=== PATIENT | male | born 2000 | race Caucasian/White ===

== ENCOUNTER 2021-07-10 19:41 | Emergency (ER) | payer OTHER, MEDICAID ==
--- NOTE | 2021-07-10 20:28 | ED Upper Extremity ---
General Stated Complaint: CUT FINGER Source: patient Exam Limitations: no limitations (BAYRON MARTIN) History of Present Illness Date Seen by Provider: July 10, 2021 Time Seen by Provider: 20:31 Initial Comments Patient is a 20-year-old male who presents ED with a laceration to his right distal middle finger. This occurred around 530 this evening. Works at [employer] when making a sandwich. He states the knife slipped resulting in a laceration to the palmar side of his right middle finger. Normal active range of motion. Up-to-date on his tetanus within the past 5 years. Bleeding co ntrolled with direct pressure. No obvious deformity, distal numbness and tingling, redness, swelling. (BAYRON MARTIN) Allergies and Home Medications Allergies Coded Allergies: No Known Drug Allergies (Unverified , 07/10/21) Patient Home Medication List Home Medication List Reviewed: Yes (BAYRON MARTIN) Review of Systems Constitutional: No chills, No diaphoresis, No dizziness, No fever, No malaise EENTM: No hearing loss, No blurred vision, No double vision, No mouth pain, No throat pain, No throat swelling Respiratory: No cough, No dyspnea on exertion, No short of breath, No stridor, No wheezing Cardiovascular: No chest pain Gastrointestinal: No abdominal pain, No diarrhea, No nausea, No vomiting Genitourinary: No decreased output, No discharge Musculoskeletal: No back pain, No joint pain, No muscle pain, No muscle stiffness, No muscle weakness, No neck pain Skin: No change in color, No change in hair/nails (BAYRON MARTIN) All Other Systems Reviewed Negative Unless Noted: Yes (BAYRON MARTIN) Physical Exam Vital Signs Vital Signs - First Documented 07/10/21 20:14 Temp 36.6 Pulse 79 Resp 18 B/P (MAP) 137/84 (101) Pulse Ox 97 O2 Delivery Room Air (JOSE THOMAS MD) Vital Signs Capillary Refill : (BAYRON MARTIN) Height, Weight, BMI Height: '" Weight: lbs. oz. kg; BMI Method: General Appearance: WD/WN, no apparent distress HEENT: PERRL/EOMI, normal ENT inspection, TMs normal, pharynx normal Neck: non-tender, full range of motion, supple, normal inspection Cardiovascular: regular rate, rhythm, no edema, no gallop, no JVD Respiratory: chest non-tender, lungs clear, normal breath sounds, no respiratory distress, no accessory muscle use Gastrointestinal: normal bowel sounds, non tender, soft, no organomegaly, no pulsatile mass Back: normal inspection, no CVA tenderness, no vertebral tenderness Hand: Left, laceration (1 cm Laceration through the right palmar middle finger.), soft tissue tenderness Neurologic/Tendon: normal sensation, normal motor functions, normal tendon functions Neurologic/Psychiatric: communications director II-XII nml as tested, no motor/sensory deficits, alert, normal mood/affect, oriented x 3 Skin: normal color, warm/dry, other (1 cm laceration to right palmar middle finger distally) (BAYRON MARTIN) Procedures/Interventions Wound Location: Upper Extremities Other Wound Location right middle finger distal Wound Length (cm): 1 Wound's Depth, Shape: superficial Wound Explored: clean Irrigated w/ Saline (ccs): 100 Betadine Prep?: Yes Anesthesia: 1% Lidocaine Volume Anesthetic (ccs): 4 Suture: Ethlion Suture Size: 5-0 Number of Sutures: 1 Layer Closure?: 1 Sterile Dressing Applied?: Yes Progress Four-way digital block right middle finger. Lidocaine 1% 4 ml (BAYRON MARTIN) Progress/Results/Core Measures Results/Orders Medications Given in ED Current Medications Medications Dose Ordered Sig/Leigh Route Start Time Stop Time Status Last Admin Dose Admin Lidocaine HCl 20 ml STK-MED ONCE .ROUTE 07/10/21 20:52 07/10/21 20:55 DC 07/10/21 20:57 20 ML (JOSE THOMAS MD) Vital Signs/I&O 07/10/21 07/10/21 20:14 21:37 Temp 36.6 36.6 Pulse 79 79 Resp 18 18 B/P (MAP) 137/84 (101) 137/84 Pulse Ox 97 97 O2 Delivery Room Air Room Air (JOSE THOMAS MD) Departure Communication (PCP) Patient has a laceration to the distal tip on the palmar side of his right middle finger. No nail involvement. Neurovascular intact with normal active range of motion. Extensive irrigation. Digital block performed here. 4 Ethilon sutures were placed. Remove in 10 days. Neosporin topical twice a day. Discussed wound care. If any worsening symptoms such as redness, swelling to return back to ED. Discussed wound care at home. Patient is up-to-date on his tetanus (BAYRON MARTIN) Impression Primary Impression: Finger laceration Disposition: HOME, SELF-CARE Condition: Stable Departure-Patient Inst. Decision time for Depature: 21:23 (BAYRON MARTIN) Referrals: NO,LOCAL PHYSICIAN (PCP/Family) Primary Care Physician Patient Instructions: Laceration Repair With Stitches ED Add. Discharge Instructions: Recommend Neosporin topical twice a day. Remove sutures in 10 days. If worsening symptoms such as redness or swelling return back to ED. ATTENDING PHYSICIAN NOTE: I was physically present as attending physician in the emergency department during the care of this patient, but I was not directly involved in the decision making or delivery of care for this patient. (JOSE THOMAS MD) BAYRON MARTIN July 10, 2021 20:28 JOSE THOMAS MD July 11, 2021 05:21
[2021-07-10] MEDS ORDERED: LIDOCAINE 1% INJ 30 ML (XYLOCAINE) VIAL INJ ONE (20:45)
[2021-07-10] MEDS ORDERED: LIDOCAINE 1% INJ 20 ML VIAL ONE (20:52)
[2021-07-10 21:37] VITALS: BP 137/84
== END 2021-07-10 21:37 | disposition home or self-care (01) ==
LOC: ER 19:48
DX: S61.213A Laceration without foreign body of left middle finger without damage to nail, initial encounter (principal); W26.0XXA Contact with knife, initial encounter; Y92.511 Restaurant or cafe as the place of occurrence of the external cause; Y99.0 Civilian activity done for income or pay; Y93.G3 Activity, cooking and baking
CPT/HCPCS: 12001; 12041